=== PATIENT | male | born 1935 | race Caucasian/White ===

== ENCOUNTER → 2016-07-06 | Outpatient (CLI) | payer MEDICARE, BC ==
[~2016-07-06] MED LIST: CELE200C PO; LISI-357 PO; PROS5TAB2 PO; TRAM50TA PO
[2016-07-06 12:24] LABS: AUTOMATED NEUTROPHIL # 2.7 TH/MM3 (1.8-7.7); BASOPHIL # 0.1 TH/MM3 (0-0.2); BASOPHIL % 0.4 % (0.0-2.0); EOSINOPHIL # 0.3 TH/MM3 (0-0.4); EOSINOPHIL % 1.6 % (0.0-4.0); HEMATOCRIT 48.3 % (39.0-51.0); LYMPH % 78.5 % (9.0-44.0); LYMPHOCYTE # 13.1 TH/MM3 (1.0-4.8); MEAN CELL VOLUME 92.7 FL (80.0-100.0); MEAN CORPUSCULAR HEMOGLOBIN 30.8 PG (27.0-34.0); MEAN CORPUSCULAR HGB CONC 33.2 % (32.0-36.0); MONO % 3.5 % (0.0-8.0); PLATELET COUNT 129 TH/MM3 (150-450); RED BLOOD COUNT 5.21 MIL/MM3 (4.50-5.90); RED CELL DISTRIBUTION WIDTH 12.8 % (11.6-17.2); WHITE BLOOD COUNT 16.6 TH/MM3 (4.0-11.0)
[2016-07-06 12:31] LABS: HEMO FLAGS AUTO DIFF
[2016-07-06 13:10] LABS: ANION GAP 7 MEQ/L (5-15); AST (GOT) 23 U/L (15-37); BLOOD UREA NITROGEN 23 MG/DL (7-18); CHLORIDE 106 MEQ/L (98-107); GLOMERULAR FILTRATION RATE 59 ML/MIN (>89); GLUCOSE,FASTING 85 MG/DL (74-99); POTASSIUM 4.4 MEQ/L (3.5-5.1); SODIUM (NA) 139 MEQ/L (136-145)
[2016-07-06 13:12] LABS: BANDS 2 % (0-6); EOSINOPHILS 1 % (0-4); NEUTROPHIL # MANUAL DIFF 2.2 TH/MM3 (1.8-7.7); POLYS (SEG NEUTROPHILS) 11 % (16-70); WBC DIFF SAMPLE 100
[2016-07-06 13:14] LABS: PLATELET ESTIMATE SMEAR LOW (NORMAL); PLATELET MORPHOLOGY NORMAL (NORMAL); SCAN/DIFF FINAL DIFF MANUAL
[2016-07-06 13:19] LABS: ALKALINE PHOSPHATASE 77 U/L (45-117); ALT (GPT) 21 U/L (12-78); LDL CHOLESTEROL 85 MG/DL (0-99); TOTAL BILIRUBIN ADULT 0.8 MG/DL (0.2-1.0)
== END ==
LOC: ELAB 11:20
PROVIDERS: ATTEND Family Medicine
DX: Z00.00 Encounter for general adult medical examination without abnormal findings (principal); N40.0 Benign prostatic hyperplasia without lower urinary tract symptoms; C91.10 Chronic lymphocytic leukemia of B-cell type not having achieved remission; I10 Essential (primary) hypertension
CPT/HCPCS: 36415; 80053; 80061; 84153; 84443; 85007; 85027

== ENCOUNTER → 2017-07-19 | Outpatient (CLI) | payer MEDICARE, BC ==
[2017-07-19 13:45] LABS: AUTOMATED NEUTROPHIL # 3.6 TH/MM3 (1.8-7.7); BASOPHIL # 0.1 TH/MM3 (0-0.2); BASOPHIL % 0.4 % (0.0-2.0); EOSINOPHIL # 0.1 TH/MM3 (0-0.4); EOSINOPHIL % 0.6 % (0.0-4.0); HEMATOCRIT 48.5 % (39.0-51.0); HEMOGLOBIN 16.4 GM/DL (13.0-17.0); LYMPH % 78.4 % (9.0-44.0); LYMPHOCYTE # 15.4 TH/MM3 (1.0-4.8); MEAN CELL VOLUME 94.7 FL (80.0-100.0); MEAN CORPUSCULAR HEMOGLOBIN 31.9 PG (27.0-34.0); MEAN CORPUSCULAR HGB CONC 33.7 % (32.0-36.0); MEAN PLATELET VOLUME 8.6 FL (7.0-11.0); MONO % 2.1 % (0.0-8.0); MONOCYTE # 0.4 TH/MM3 (0-0.9); NEUT % 18.5 % (16.0-70.0); PLATELET COUNT 142 TH/MM3 (150-450); RED BLOOD COUNT 5.13 MIL/MM3 (4.50-5.90); RED CELL DISTRIBUTION WIDTH 13.7 % (11.6-17.2); WHITE BLOOD COUNT 19.7 TH/MM3 (4.0-11.0)
[2017-07-19 14:20] LABS: LYMPHOCYTES 74 % (9-44); MONOCYTES 4 % (0-8); NEUTROPHIL # MANUAL DIFF 4.3 TH/MM3 (1.8-7.7); POLYS (SEG NEUTROPHILS) 22 % (16-70)
[2017-07-19 15:04] LABS: ALBUMIN 3.7 GM/DL (3.4-5.0); ALT (GPT) 18 U/L (12-78); AST (GOT) 18 U/L (15-37); BLOOD UREA NITROGEN 23 MG/DL (7-18); CALCIUM 8.5 MG/DL (8.5-10.1); CHLORIDE 105 MEQ/L (98-107); CHOLESTEROL 180 MG/DL (120-200); CREATININE 1.21 MG/DL (0.60-1.30); GLOMERULAR FILTRATION RATE 57 ML/MIN (>89); GLUCOSE,FASTING 80 MG/DL (74-99); SODIUM (NA) 140 MEQ/L (136-145)
[2017-07-19 15:07] LABS: ALKALINE PHOSPHATASE 76 U/L (45-117); CHOLESTEROL/ HDL RATIO 3.22 RATIO; HDL CHOLESTEROL 55.8 MG/DL (40.0-60.0); LDL CHOLESTEROL 100 MG/DL (0-99); TOTAL BILIRUBIN ADULT 0.7 MG/DL (0.2-1.0); TOTAL PROTEIN 6.2 GM/DL (6.4-8.2); TRIGLYCERIDES 122 MG/DL (42-150)
== END ==
LOC: ELAB 11:27
PROVIDERS: ATTEND Family Medicine
DX: I10 Essential (primary) hypertension (principal); N40.0 Benign prostatic hyperplasia without lower urinary tract symptoms; C91.10 Chronic lymphocytic leukemia of B-cell type not having achieved remission
CPT/HCPCS: 36415; 80053; 80061; 84153; 85007; 85027

== ENCOUNTER → 2017-10-14 | Outpatient (CLI) | payer MEDICARE, BC ==
[2017-10-14 12:11] LABS: HEMATOCRIT 43.3 % (39.0-51.0); HEMOGLOBIN 14.4 GM/DL (13.0-17.0); MEAN CELL VOLUME 92.4 FL (80.0-100.0); MEAN CORPUSCULAR HEMOGLOBIN 30.7 PG (27.0-34.0); MEAN CORPUSCULAR HGB CONC 33.3 % (32.0-36.0); MEAN PLATELET VOLUME 8.3 FL (7.0-11.0); PLATELET COUNT 175 TH/MM3 (150-450); RED BLOOD COUNT 4.69 MIL/MM3 (4.50-5.90); RED CELL DISTRIBUTION WIDTH 13.5 % (11.6-17.2); WHITE BLOOD COUNT 18.1 TH/MM3 (4.0-11.0)
[2017-10-14 12:30] LABS: BICARBONATE 25.1 MEQ/L (21.0-32.0); CREATININE 1.84 MG/DL (0.60-1.30)
[2017-10-15 04:27] LABS: PSA, FREE 1.6 ng/mL
== END ==
LOC: ELAB 10:55
DX: R31.1 Benign essential microscopic hematuria (principal); R97.20 Elevated prostate specific antigen [PSA]
CPT/HCPCS: 36415; 80051; 82565; 84153; 84154; 84520; 85027